=== PATIENT | female | born 1965 | race Two or more races ===

== ENCOUNTER 2023-09-21 22:27 | Emergency (ER) | payer OTHER ==
[2023-09-21 22:40] VITALS: TEMP 98.1; BMI 30.6
[2023-09-21] MEDS ORDERED: ACETAMINOPHEN 1000 MG/100 ML BAG IVPB ONE (23:35)
[2023-09-21] MEDS ORDERED: METOCLOPRAMIDE HCL INJECTION 10 MG/2 ML VIAL IVPUSH ONE (23:35)
[2023-09-21] MEDS ORDERED: METOCLOPRAMIDE HCL INJECTION 10 MG/2 ML VIAL ONE (23:51)
[2023-09-21] MEDS ORDERED: ACETAMINOPHEN INJECTION 100 ML IVPB ONE (23:51)
[2023-09-22 00:39] LABS: POTASSIUM 3.6 mmol/L (3.5-5.1)
[2023-09-22 00:42] LABS: ALBUMIN 3.8 g/dl (3.4-5.0); BLOOD UREA NITROGEN 18.8 mg/dL (7-18); CALCIUM 9.6 mg/dL (8.5-10.1)
[2023-09-22 00:45] LABS: CREATININE 0.9 mg/dL (0.55-1.3)
[2023-09-22 00:47] LABS: BILIRUBIN,TOTAL 0.4 mg/dL (0.2-1); TOT PROT 7.4 g/dl (6.4-8.2)
[2023-09-22] MEDS ORDERED: HYDROCHLOROTHIAZIDE 25 MG TABLET (FP) PO ONE (01:23)
[2023-09-22] MEDS ORDERED: HYDROCHLOROTHIAZIDE 25 MG TABLET (FP) ONE (01:30)
[2023-09-22] MEDS ORDERED: LISINOPRIL 20 MG TABLET PO ONE (02:09)
[2023-09-22] MEDS ORDERED: LISINOPRIL 20 MG TABLET ONE (02:17)
[2023-09-22 02:22] VITALS: BP 151/105; PULSE 71; RESP 19
== END 2023-09-22 03:50 | disposition home or self-care (01) ==
LOC: JER 22:27
PROC: 3E033NZ Introduction of Analgesics, Hypnotics, Sedatives into Peripheral Vein, Percutaneous Approach (ICD-10-PCS; principal; 2023-09-21)
PROC: 3E033GC Introduction of Other Therapeutic Substance into Peripheral Vein, Percutaneous Approach (ICD-10-PCS; 2023-09-21)
PROC: 3E033GC Introduction of Other Therapeutic Substance into Peripheral Vein, Percutaneous Approach (ICD-10-PCS; 2023-09-21)
DX: R51.9 Headache, unspecified (principal); I10 Essential (primary) hypertension
CPT/HCPCS: 36415; 70450-TC; 80053; 93005; 93010; 99285-25

== ENCOUNTER 2024-03-10 10:50 | Emergency (ER) | payer OTHER ==
[2024-03-10 11:05] VITALS: BP 129/76; PULSE 98; RESP 18; TEMP 98.3; BMI 28.8
[2024-03-10 12:11] LABS: BASO % 1.2 % (0-2.0); EOS % 2.6 % (0-4.5); HEMATOCRIT 39.8 % (32.4-45.2); HEMOGLOBIN 13.4 GM/dL (10.7-15.3); LYMPH % 32.9 % (8-40); MCH 30.3 pg (25.7-33.7); MCHC 33.7 g/dl (32.0-36.0); MEAN CELL VOLUME 89.9 fl (80-96); MEAN PLT VOLUME 7.5 fl (7.5-11.1); MONO % 10.5 % (3.8-10.2); NEUT % 52.8 % (42.8-82.8); PLATELET COUNT 310 10^3/uL (134-434); RBC 4.43 M/mm3 (3.60-5.2); RDW 13.5 % (11.6-15.6); WHITE BLOOD COUNT 4.7 K/mm3 (4.0-10.0)
[2024-03-10 12:22] LABS: POTASSIUM 5.6 mmol/L (3.5-5.1)
[2024-03-10 12:25] LABS: CALCIUM 9.6 mg/dL (8.5-10.1)
[2024-03-10 12:27] LABS: ALBUMIN 3.6 g/dl (3.4-5.0); BLOOD UREA NITROGEN 16.3 mg/dL (7-18)
[2024-03-10 12:30] LABS: CREATININE 0.7 mg/dL (0.55-1.3)
[2024-03-10 12:32] LABS: TOT PROT 7.9 g/dl (6.4-8.2)
== END 2024-03-10 14:53 | disposition home or self-care (01) ==
LOC: JER 10:50
DX: R07.9 Chest pain, unspecified (principal)
CPT/HCPCS: 36415; 71046-TC-FY; 80053; 84484; 85025; 93005; 93010; 99284-25